=== PATIENT | male | born 1955 | race Caucasian/White ===

== ENCOUNTER → 2020-08-16 | Outpatient (CLI) | payer OTHER ==
--- NOTE | 2020-08-16 16:50 | RAD ---
XR KNEE_RT 1-2 VIEWS 08/16/2020 12:14 PM INDICATION: Right knee pain COMPARISON: None available. TECHNIQUE: 2 views the right knee are provided. FINDINGS/ IMPRESSION: There is no acute fracture or dislocation. Joint spaces are maintained. Bone mineralization is within normal limits. Regional soft tissues are within normal limits. There is no soft tissue gas or osseou s erosion. No radiopaque foreign body. No significant knee joint effusion. Electronically signed by: Leslie Suarez MD (08/16/2020 4:47 PM) [id number]
== END ==
LOC: PMG 11:39
PROVIDERS: ATTEND Physician Assistant
DX: M25.561 Pain in right knee (principal)
CPT/HCPCS: 73560